=== PATIENT | female | born 1985 | race African-American/Black ===

== ENCOUNTER 2016-12-04 19:08 | Emergency (ER) | payer OTHER ==
[~2016-12-04] VITALS: Ht 162.6 cm; Wt 65.3 kg
[~2016-12-04 19:08] MED LIST: PERCOCET 5-3251 EACH PO; PREDNISONE20 M1 PO
[2016-12-04 19:44] LABS: ABSOLUTE BASOPHIL COUNT 0 /CUMM (0.0-0.2); ABSOLUTE EOSINOPHIL COUNT 0.1 /CUMM (0.0-0.7); ABSOLUTE GRANULOCYTE CT 6.8 /CUMM (1.4-6.5); ABSOLUTE MONOCYTE COUNT 0.7 /CUMM (0.10-0.60); BASOPHIL % 0.3 % (0.0-2.0); EOSINOPHIL % 0.9 % (0-5); GRANULOCYTE % 63.6 % (42.2-75.2); HEMATOCRIT 33.3 % (37-47); MEAN CORPUSCULAR HGB 30.3 PG (27.0-31.0); MEAN CORPUSCULAR HGB CONC 33.9 G/DL (33.0-37.0); MEAN CORPUSCULAR VOLUME 89.5 FL (81.0-99.0); MEAN PLATELET VOLUME 8.7 FL (7.4-10.4); PLATELET COUNT 273 /CUMM (130-400); RBC DISTRIBUTION WIDTH 12.8 % (11.5-14.5); RED BLOOD CELL CT 3.72 /CUMM (4.20-5.40); WHITE BLOOD CELL COUNT 10.7 /CUMM (4.8-10.8)
--- NOTE | 2016-12-04 20:56 | ED GI/GU/ABDOMINAL COMPLAINT ---
History of Present Illness General Chief Complaint: Female Urogenital Problems Stated Complaint: PT IS BLEEDNG AND CRAMPING AND FOUND OUT SHE PREGN Source: patient Exam Limitations: no limitations Allergies Coded Allergies: No Known Allergies (12/04/16) Triage Note: PT TO ED C/C OF ABD CRAMPING STARTING YESTERDAY EVENING AND BLEEDING. TODAY BLEEDING AND CRAMPING IS WORSE. AROUND 1700 PT REPORTS HEAVY BLEEDING WITH CLOTS. PT REPORTS SHE TOOK A TEST TWO HOURS AGO AND TESTED POSITIVE. CALLED SHIFT SUPERVISOR MELTING WHO SUGGESTED TO COME HERE. PT IS . Triage Nurses Notes Reviewed? yes ? Y Is pt currently ? No Onset: Gradual Duration: worse persistent since (THIS AM) Timing: no prior history Quality/Severity: cramping Severity Numbers: 7 Location: suprapubic Radiation: no radiation Activities at Onset: none Prior Abdominal Problems: none Sexually Active: Yes Last Time You Were Sexual: less than 2 months ago Sexual Orientation: Heterosexual Use of Protection: No Modifying Factors: Improves With: other (IBUPROFEN). HPI: Patient is a 31-year-old female presenting to the emergency Department chief complaint of heavy vaginal bleeding that started this morning. She was concerned because it doesn't feel like a typical menstrual period and the cramps were more intense so she decided take a test. A came back positive. She called her SHIFT SUPERVISOR MELTING and was told to come to the emergency department for evaluation. She reports that she has been passing some clots, darker in color. Denies lightheadedness or dizziness. No malaise. Currently does not have any cramps but reports of abdominal cramps were more intense than her regular period cramps. No fevers or chills. Cannot really say when her last normal menstrual period was because she was on the DepO shot until June and then she was off of it never really had a normal period since then. Denies any urinary frequency or urgency or dysuria. No fevers or chills. . (KSENIA CLOUD) Vital Signs & Intake/Output Vital Signs & Intake/Output Vital Signs Date Time Temp Pulse Resp B/P B/P Pulse O2 O2 Flow FiO2 Mean Ox Delivery Rate 12/04 2341 98.2 89 16 113/77 100 12/04 2250 98.0 84 18 123/67 99 Room Air 12/04 2234 99 Room Air 12/04 1921 98.7 90 15 114/64 100 Room Air Room Air ED Intake and Output 12/05 0000 12/04 1200 Intake Total 0 Output Total Balance 0 Intake, IV 0 Patient 144 lb Weight Weight Reported by Patient Measurement Method Reconcile Medications Cyclobenzaprine HCl 10 MG TABLET 1 TAB PO TIDPRN MUSCLE SPASMS (Reported) Ibuprofen 600 MG TABLET 1 TAB PO TID PAIN CONTROL (Reported) with food (KIRSTIN MILLAN,MARIA VICTORIA) Past History Travel History Traveled to [place] past 21 day No Medical History Any Pertinent Medical History? see below for history Neurological: NONE EENT: allergies Cardiovascular: NONE Respiratory: NONE Gastrointestinal: NONE Hepatic: NONE Renal: NONE Musculoskeletal: NONE Psychiatric: NONE Endocrine: NONE Blood Disorders: NONE Cancer(s): NONE SALES VENDOR/Reproductive: NONE Surgical History Surgical History: non-contributory Psychosocial History What is your primary language Irish Tobacco Use: Current Not Daily ETOH Use: occasional use Illicit Drug Use: denies illicit drug use Family History Hx Contributory? No (KSENIA CLOUD) Review of Systems Review of Systems Constitutional: Reports: no symptoms. Comments Review of systems: See HPI, All other systems negative. Constitutional, no chills fever or weight loss HEENT: No visual changes no sore throat no congestion Cardiovascular: No chest pain ,palpitation , orthopnea or ankle swelling Skin, no jaundice no rashes Respiratory: No dyspnea cough sputum or hemoptysis GI: No nausea no vomiting : No dysuria No hematuria Muscle skeletal: no back pain, no neck pain, Neurologic: No numbness no confusion NO FLORES Psych: No stress anxiety or depression,. Heme/endocrine: No bruising no bleeding no polyuria or polydipsia Immunology: No splenectomy or history of AIDS (KSENIA CLOUD) Physical Exam Physical Exam General Appearance: well developed/nourished, no apparent distress, alert, awake , comfortable Gastrointestinal: normal bowel sounds, soft, non-tender Comments: Well-developed well-nourished person in no acute distress HEENT: Pupils equally round and reactive to light and accommodation. No signs of pallor to palpable conjunctiva. Nose is atraumatic. Pharynx normal. No swelling or edema. Neck: Normal inspection Back: Nontender, no CVA tenderness. Full range of motion Cardiovascular: Regular rate and rhythms no murmurs rubs or gallops, normal JVP Respiratory: Chest nontender. No respiratory distress.breath sounds clear to auscultation bilaterally Abdomen: Soft, nontender nondistended, no appreciable organomegaly. Normal bowel sounds. No ascites and no rebound or guarding. PELVIC: Visualized dark clots in the vaginal canal, no pain to palpation of the cervix. Unable to appreciate if the cervix is open or close on exam. Extremity: No edema Neuro: Alert oriented x3 Skin: No appreciable rash on exposed skin, skin is warm and dry. Psych: Mood and affect is normal, memory and judgment is normal. Core Measures ACS in differential dx? No Severe Sepsis Present: No Septic Shock Present: No (NEDRA ARROYO,KSENIA) Progress Differential Diagnosis: UTI/pyelo, THREATENED , INTRAUTERINE , ECTOPIC Diagnostic Imaging: Viewed by Me: Ultrasound. Discussed w/RAD: Ultrasound. Radiology Impression: PATIENT: NEETA MOORE PRESENT AGE: 31 PATIENT ACCOUNT NO: [id number] : 87 LOCATION: [facility] ORDERING PHYSICIAN: KSENIA ARROYO SERVICE DATE: 12/04/16 EXAM TYPE: US - US-ECTOPIC DX EXAMINATION: US ECTOPIC DIAGNOSIS CLINICAL INFORMATION: Abdominal cramping. . Rule out ectopic. COMPARISON : None TECHNIQUE: Transabdominal and endovaginal sonographic evaluation of the pelvis. Endovaginal examination was performed for improved visualization of the gestational sac. Doppler evaluation with spectral analysis performed. FINDINGS: There is a gestational sac within the endometrial canal. This is somewhat inferiorly positioned, near the lower uterine segment. There is a yolk sac present. A pole is noted, with a crown-rump length of 0.22 cm. This corresponds to a gestational age of 5 weeks 6 days. There is no heart rate visualized. There is a cervical length of 2.7 cm. Both ovaries are identified and appear unremarkable. The left ovary measures 4 x 2.5 x 2.7 cm. The right ovary measures 3.4 x 2.5 x 2.5 cm. Normal arterial and venous spectral waveforms are seen in both ovaries. No free fluid in the pelvis. No adnexal mass. IMPRESSION: Intrauterine with no heart rate seen. This is nonspecific and could be secondary to the early stage of . Close interval follow-up and monitoring of beta hCG is recommended. Follow-up ultrasound as clinically appropriate. No ectopic visualized. DICTATED BY: VICTOR M WORTHY MD DATE/TIME DICTATED:12/04/162305 PRESS SET UP PERSON: CHARLOTTE DATE/TIME TRANSCRIBED:12/04/162305 CONFIDENTIAL, DO NOT COPY WITHOUT APPROPRIATE AUTHORIZATION. <Electronically signed in Other Vendor System> SIGNED BY: VICTOR M WORTHY MD 12/04/162311 Initial ED EKG: none (KSENIA CLOUD) Plan of Care: Orders Procedure Date/time Status URINE 12/04 1912 Complete URINALYSIS 12/04 1912 Complete HUMAN BETA HCG TITRE 12/04 1912 Complete COMPREHENSIVE METABOLIC PANEL 12/04 1912 Complete CBC WITHOUT DIFFERENTIAL 12/04 1912 Complete RHOGAM WORK-UP 12/04 1912 Complete Laboratory Tests 12/04/161950: Anion Gap 11, Estimated GFR > 60, BUN/Creatinine Ratio 17.1, Glucose 88, Calcium 8.9, Total Bilirubin 0.4, AST 17, ALT 35, Alkaline Phosphatase 51, Total Protein 7.1, Albumin 4.2, Globulin 2.9, Albumin/Globulin Ratio 1.4, Beta HCG, Quant 55512.0 12/04/16 1950: Urine Color YEL, Urine Clarity CLEAR, Urine pH 6.0, Ur Specific [place] 1.015, Urine Protein NEG, Urine Ketones NEG, Urine Nitrite NEG, Urine Bilirubin NEG, Urine Urobilinogen 0.2, Ur Leukocyte Esterase NEG, Ur Microscopic SEDIMENT EXAMINED, Urine RBC 1-3, Ur Epithelial Cells FEW, Urine Hemoglobin MOD H, Urine Glucose NEG, Urine Test POSITIVE 12/04/161930: CBC w Diff NO MAN DIFF REQ, RBC 3.72 L, MCV 89.5, MCH 30.3, RDW 12.8, MPV 8.7, Gran % 63.6, Lymphocytes % 28.4, Monocytes % 6.8, Eosinophils % 0.9, Basophils % 0.3, Absolute Granulocytes 6.8 H, Absolute Lymphocytes 3.0, Absolute Monocytes 0.7 H, Absolute Eosinophils 0.1, Absolute Basophils 0, PUBS MCHC 33.9 11:41 pm Results of ultrasound and labs discussed with patient. She will go home and follow-up with the OB in the office. Dr. Jason manriquez. (MARIA VICTORIA FULTON MD) Radiology Impression: PATIENT: NEETA MOORE PRESENT AGE: 31 PATIENT ACCOUNT NO: [id number] : 87 LOCATION: [facility] ORDERING PHYSICIAN: KSENIA ARROYO SERVICE DATE: 12/04/16 EXAM TYPE: US - US-ECTOPIC DX EXAMINATION: US ECTOPIC DIAGNOSIS CLINICAL INFORMATION: Abdominal cramping. . Rule out ectopic. COMPARISON : None TECHNIQUE: Transabdominal and endovaginal sonographic evaluation of the pelvis. Endovaginal examination was performed for improved visualization of the gestational sac. Doppler evaluation with spectral analysis performed. FINDINGS: There is a gestational sac within the endometrial canal. This is somewhat inferiorly positioned, near the lower uterine segment. There is a yolk sac present. A pole is noted, with a crown-rump length of 0.22 cm. This corresponds to a gestational age of 5 weeks 6 days. There is no heart rate visualized. There is a cervical length of 2.7 cm. Both ovaries are identified and appear unremarkable. The left ovary measures 4 x 2.5 x 2.7 cm. The right ovary measures 3.4 x 2.5 x 2.5 cm. Normal arterial and venous spectral waveforms are seen in both ovaries. No free fluid in the pelvis. No adnexal mass. IMPRESSION: Intrauterine with no heart rate seen. This is nonspecific and could be secondary to the early stage of . Close interval follow-up and monitoring of beta hCG is recommended. Follow-up ultrasound as clinically appropriate. No ectopic visualized. DICTATED BY: VICTOR M WORTHY MD DATE/TIME DICTATED:12/04/162305 PRESS SET UP PERSON: CHARLOTTE DATE/TIME TRANSCRIBED:12/04/162305 CONFIDENTIAL, DO NOT COPY WITHOUT APPROPRIATE AUTHORIZATION. <Electronically signed in Other Vendor System> SIGNED BY: VICTOR M WORTHY MD 12/04/16 [id number] (MARIA VICTORIA FULTON MD) Departure Departure Disposition: HOME OR SELF CARE Condition: Stable Departure Forms: Customer Survey General Discharge Information (NEDRA ARROYO,KSENIA) Departure Time of Disposition: 2332 Clinical Impression Primary Impression: Threatened Referrals: BRANDO MILLAN,JOVITA LOERA MD,CRISTINA Ozuna (PCP/Family) Additional Instructions: Please follow-up with your SHIFT SUPERVISOR MELTING or the one listed on her discharge summary. Vaginal rest as discussed. Return to the ER for any severe bleeding or abdominal pain. PA/HEAD MIXER Co-Sign Statement Statement: ED Attending supervision documentation- [X] I saw and evaluated the patient. I have also reviewed all the pertinent lab results and diagnostic results. I agree with the findings and the plan of care as documented in the PA's/HEAD MIXER's documentation. [X] I have reviewed the ED Record and agree with the PA's/HEAD MIXER's documentation. [] Additions or exceptions (if any) to the PAs/HEAD MIXER's note and plan are summarized below: [] (KIRSTIN MILLAN,MARIA VICTORIA)
[2016-12-04] MEDS ORDERED: IBUPROFEN600 M1 PO (22:54)
[2016-12-04] MEDS ORDERED: CYCLOBENZAPRINE10 M1 PO (22:55)
--- NOTE | 2016-12-04 23:12 | ULTRASOUND REPORT ---
EXAMINATION: US ECTOPIC DIAGNOSIS CLINICAL INFORMATION: Abdominal cramping. . Rule out ectopic. COMPARISON: None TECHNIQUE: Transabdominal and endovaginal sonographic evaluation of the pelvis. Endovaginal examination was performed for improved visualization of the gestational sac. Doppler evaluation with spectral analysis performed. FINDINGS: There is a gestational sac within the endometrial canal. This is somewhat inferiorly positioned, near the lower uterine segment. There is a yolk sac present. A pole is noted, with a crown-rump length of 0.22 cm. This corresponds to a gestational age of 5 weeks 6 days. There is no heart rate visualized. There is a cervical length of 2.7 cm. Both ovaries are identified and appear unremarkable. The left ovary measures 4 x 2.5 x 2.7 cm. The right ovary measures 3.4 x 2.5 x 2.5 cm. Normal arterial and venous spectral waveforms are seen in both ovaries. No free fluid in the pelvis. No adnexal mass. IMPRESSION: Intrauterine with no heart rate seen. This is nonspecific and could be secondary to the early stage of . Close interval follow-up and monitoring of beta hCG is recommended. Follow-up ultrasound as clinically appropriate. No ectopic visualized.
[2016-12-04 23:41] VITALS: BP 113/77
== END 2016-12-04 23:47 ==
LOC: ERH 19:08
PROVIDERS: Physician Assistant Medical
DX: O20.0 Threatened abortion (principal)
CPT/HCPCS: 81001; 81025

== ENCOUNTER → 2016-12-25 | Day surgery (SDC) | payer OTHER ==
[~2016-12-25] VITALS: Ht 162.6 cm; Wt 66.2 kg
[~2016-12-25] MED LIST changes: +CYCLOBENZAPRINE10 M1 PO; +IBUPROFEN600 M1 PO
--- NOTE | 2016-12-25 16:03 | Operative Report ---
Operative/Inv Procedure Report Surgery Date: 12/25/16 Name of Procedure: Cervical dilation, suction and sharp curette Pre-Operative Diagnosis: Missed AB Post-Operative Diagnosis: Same Estimated Blood Loss: less than 50 ML Surgeon/Sales Service Technician: JACKELIN MILLAN,JULIEN Falk Anesthesia: local monitored anesthesi Monitors: Blood pressure cuff, EKG electrode, pulse oximeter IV Fluids: 750 crystalloid Urine Output: No catheterization, not measured Drains: None Specimens: Products of conception, patient declined genetic analysis Complications: None Condition: Good Operative Indication: 31-year-old with evidence of missed AB by ultrasound. Patient declined medical induction of miscarriage and is set for surgical completion of her miscarriage. Patient's blood type is A+. Operative/Procedure Note Note: Patient was brought to the OR room, and placed on the OR table in the dorsal supine position. Timeout was discussed by the team and agreed upon. Patient had preoperatively declined genetic analysis with products Of conception, so the tissue sample for the pathology department from this case will be placed in formalin. Patient received one oral dose of doxycycline before coming to the operating room. Patient was given sedation. After evidence of adequate sedation she was then placed in the dorsal lithotomy position with pneumatic compression boots on her lower extremities. Exam under anesthesia removed the 4 x 4 from the vagina and the laminaria from the low cervical segment. Uterus seemed to be a 6-7 week size anteverted. Adnexa were nonpalpable. Patient was then prepped draped in the usual sterile fashion. Side arm speculum placed vagina. Cervix was visualized and a single-tooth tenaculum was placed on the anterior lip of the cervix. Cervix was found to be open to a #10 Hegar dilator. We then chose a 10 curved curet to be utilized for the suction curettage. The Suction curet was passed to the cervix into the endometrial cavity to the appropriate depth, suction was applied. Using a total of 3 passes of the suction curette the cavity appeared to be appropriately emptied. Sharp curettage was performed minimal tissue was obtained no significant bleeding was noted. Suction curet was passed one final time no significant tissue and minimal blood was obtained. Good hemostasis was noted at this point. All instruments removed from the vagina. Good hemostasis continued. Patient was given IV Toradol, IV Pitocin solution, and IM Methergine, during her operative procedure. Patient was returned to dorsal supine position where from anesthesia and taken recovery room good condition. Of note her blood type is A+ she will not require RhoGAM after procedure Findings: Prior to the procedure the uterus was around 6-7 week size anteverted nonpalpable adnexa. Cervix was open to a #10 Hegar dilator from the laminaria placement #10 curved suction curette was utilized to empty the cavity from any products of conception. Products of conception were sent to the lab in formalin since patient declined genetic analysis of this tissue. Patient received oral doxycycline both pre-and postoperatively. Blood type A+ no need for program Discharge Disposition: Same Day Admissions CC: JACKELIN MILLAN,JULIEN Falk
== END ==
LOC: STS 03:12
DX: O02.1 Missed abortion (principal)
CPT/HCPCS: 88305; J1885; J2210; J2250; J2405